=== PATIENT | female | born 1990 | race Caucasian/White ===

== ENCOUNTER 2019-06-12 13:40 | Emergency (ER) | payer BC, OTHER ==
--- OUTSIDE RECORDS SUMMARY | 2019-06-12 13:48 | XMS REPORT | Continuity of Care Document ---
:1990 External Reference #:[id number] Author Name Tameka Brown CNM Address [address] [place] [address] Problems Description No Information Available Social History Type Date Description Comments Sex Unknown Tobacco Use Start: Unknown Never Smoked Cigarettes ETOH Use Currently consumes 1-2 drinks on the alcohol weekend Recreational Drug Use Denies Drug Use Tobacco Use Start: Unknown Patient has never smoked Smoking Status Reviewed: 05/04/19 Patient has never smoked Exercise Type/Frequency Exercises regularly Seat Belt/Car Seat Always uses seat belt Allergies, Adverse Reactions, Alerts Active Allergies Reaction Severity Comments Date Sulfa 05/04/2019 Medications Active Medications SIG Qnty Indications Ordering Provider Date Loestrin 08/14 (21) 1 tab by mouth 84tabs Tameka Brown CNM 05/04/2019 every day at 1-20mg-mcg Tablets the same time Medications Administered in Office Medication SIG Qnty Indications Ordering Provider Date PT SCRN Tbco Id as Non User Tameka Brown CNM 05/04/2019 Injection Immunizations Description No Information Available Vital Signs Date Vital Result Comment 05/04/2019 2:40pm BP Systolic 120 mmHg BP Diastolic 64 mmHg Height 61.5 inches 5'1.50" Weight 125.00 lb BMI (Body Mass Index) 23.2 kg/m2 Last Menstrual Period [id number] Results Test Date Facility Test Result H/L Range Note Laboratory test 05/04/2019 [facility] Cytology <pending> [place] [address] [phone] Procedures Description No Information Available Medical Devices Description No Information Available Encounters Type Date Location Provider Dx Diagnosis Office Visit 05/04/2019 [facility] Tameka Brown CNM Z01.419 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
--- NOTE | 2019-06-12 14:18 | UC ---
Cardiac HPI - History of Current Complaint Chief Complaint: UCChestPain Stated Complaint: LOWER BACK PAIN Time Seen by Provider: 06/12/19 14:10 Hx Obtained From: Patient Hx Last Menstrual Period: 06/04/19 Initial Severity: Severe Current Severity: Severe Pain Intensity: 7 - Allergy/Home Medications Allergies/Adverse Reactions: Allergies Allergy/AdvReac Type Severity Reaction Status Date / Time Sulfa (Sulfonamide Allergy Hives Verified 06/12/19 14:10 Antibiotics) PMH/Surg Hx/FS Hx/Imm Hx Previously Healthy: Yes Other History Of: Negative For: HIV, Hepatitis B, Hepatitis C - Surgical History Surgical History: None - Family History Known Family History: Positive: None, Non-Contributory Negative: Seizure Disorder, Blood Disorder - Social History Occupation: Employed Full-time - [employer] Alcohol Use: None Substance Use Type: None Smoking Status (MU): Never Smoked Tobacco Have You Smoked in the Last Year: No Review of Systems All Other Systems Reviewed And Are Negative: Yes Constitutional: Positive: Chills. Negative: Fever, Fatigue Skin: Negative: Rash, Bruising Respiratory: Negative: Shortness Of Breath, Cough Cardiovascular: Positive: Chest Pain Motor: Positive: Decreased ROM Neurovascular: Negative: Decreased Sensation, Decreased Pulses Musculoskeletal: Positive: Arthralgia, Myalgia. Negative: Decreased ROM, Edema Neurological: Positive: Negative Psychological: Positive: Negative Is Patient Immunocompromised?: No Physical Exam Triage Information Reviewed: Yes Appearance: Well-Appearing, No Pain Distress, Well-Nourished Vital Signs: Initial Vital Signs Temp 98.9 F 06/12/19 14:05 Pulse 100 06/12/19 14:05 Resp 20 06/12/19 14:05 BP 124/74 06/12/19 14:05 Pulse Ox 100 06/12/19 14:05 Vital Signs Reviewed: Yes Eyes: Positive: Conjunctiva Clear ENT: Positive: Hearing grossly normal, TMs normal. Negative: TM bulging, TM dull, TM red Neck: Positive: Supple, Nontender, No Lymphadenopathy. Negative: Nuchal Rigidity, Enlarged Nodes @ Respiratory: Positive: Chest non-tender, Lungs clear, Normal breath sounds, No respiratory distress, No accessory muscle use. Negative: Respiratory distress, Crackles, Rhonchi, Stridor, Wheezing Cardiovascular: Positive: No Murmur, Pulses Normal, Brisk Capillary Refill, Tachycardia - mild at 100 Abdomen Description: Negative: CVA Tenderness (R), CVA Tenderness (L) Musculoskeletal: Positive: Strength Intact, No Edema, Other: - neg homans b/l TTP over b/l thoracic soft tissue extending from paraspinal to axillary line, worse right sided. no TTP over spine. no SI joint tenderness. Neurological: Positive: Alert, Muscle Tone Normal Psychological Exam: Normal Skin Exam: Normal Skin: Negative: Rashes, Breakdown - Assessment/Plan Course Of Treatment: Scoliosis, muscle spasm: - Naproxen/ motrin as directed per bottle for 2-3 days - Increase rest - Establish care with primary physician for further evaluation of chest pain, possible physical therapy for spine - Return with chest pain, shortness of breath, numbness/ tingling. - Dextroscoliosis is a type of scoliosis. Scoliosis is a deformity of the spine that results in a sideways curve of the spinal column. If the spine curves to the right, the condition is known as dextroscoliosis. - Clinical Impression Provider Diagnosis: Muscle spasm, Chest pain Discharge ED - Sign-Out/Discharge Documenting (check all that apply): Patient Departure All imaging exams completed and their final reports reviewed: Yes - Discharge Plan Condition: Good Disposition: HOME Patient Education Materials: Scoliosis in Children (DC), Muscle Spasm (ED) Referrals: Delfina Reyes MD [Primary Care Provider] - Additional Instructions: - Naproxen/ motrin as directed per bottle for 2-3 days - Increase rest - Establish care with primary physician for further evaluation of chest pain, possible physical therapy for spine - Return with chest pain, shortness of breath, numbness/ tingling. - Dextroscoliosis is a type of scoliosis. Scoliosis is a deformity of the spine that results in a sideways curve of the spinal column. If the spine curves to the right, the condition is known as dextroscoliosis. - Billing Disposition and Condition Condition: GOOD Disposition: Home
[2019-06-12 15:04] VITALS: BP 118/75
[2019-06-12 19:17] LABS: ABS Eosinophils 0.2 10^3/ul (0-0.6); ABS Lymphocytes 2.3 10^3/ul (1.0-4.8); ABS Monocytes 0.7 10^3/ul (0-0.8); ABS Neutrophils 6.9 10^3/ul (1.5-7.7); Eosinophil % 1.6 %; Hematocrit 40 % (35-47); Hemoglobin 13.7 g/dL (12.0-16.0); Lymphocyte % 22.7 %; Mean Corpuscular HGB Conc 35 g/dL (31-36); Mean Corpuscular Hemoglobin 31 pg (27-31); Mean Corpuscular Volume 91 fL (80-97); Mean Platelet Volume 9.5 fL (7.4-10.4); Platelet Count 318 10^3/uL (150-450); Red Blood Count 4.35 10^6 /uL (3.70-4.87); Red Cell Distribution Width 12 % (10-15); White Blood Count 10.1 10^3/uL (3.5-10.8)
[2019-06-12 21:04] LABS: Albumin 4.4 g/dL (3.2-5.2); Albumin/Globulin Ratio 1.7 (1-3); BUN/Creatinine Ratio 14.9 (8-20); Calcium 9.4 mg/dL (8.6-10.3); EGFR African American 112.3 (>60); EGFR Non-African American 92.8 (>60); Globulin 2.6 g/dL (2-4); Magnesium 2.3 mg/dL (1.9-2.7); Potassium 4.2 mmol/L (3.5-5.0); Total Bilirubin 0.2 mg/dL (0.2-1.0)
--- NOTE | 2019-06-13 10:36 | UC ---
- Progress Note Progress Note: Reviewed labs ordered yesterday. Normal blood count and chemistries, but B12 is low. Reviewed chart note and uncertain why labs were ordered. She is not anemic and does not have microcytosis. She can begin an oral supplement of B12, available over the counter, of 1000 micrograms = 1 mg per day. She does, however, need a follow up with a primary care physician to review. Lyme is still pending. Course/Dx - Diagnoses Provider Diagnoses: Muscle spasm, Chest pain Discharge ED - Sign-Out/Discharge Documenting (check all that apply): Post-Discharge Follow Up All imaging exams completed and their final reports reviewed: Yes - Discharge Plan Condition: Good Disposition: HOME Patient Education Materials: Scoliosis in Children (DC), Muscle Spasm (ED) Referrals: Delfina Reyes MD [Primary Care Provider] - Additional Instructions: - Naproxen/ motrin as directed per bottle for 2-3 days - Increase rest - Establish care with primary physician for further evaluation of chest pain, possible physical therapy for spine - Return with chest pain, shortness of breath, numbness/ tingling. - Dextroscoliosis is a type of scoliosis. Scoliosis is a deformity of the spine that results in a sideways curve of the spinal column. If the spine curves to the right, the condition is known as dextroscoliosis. - Billing Disposition and Condition Condition: GOOD Disposition: Home
== END 2019-06-12 15:48 | disposition home or self-care (01) ==
LOC: UCEAST 13:40
DX: M62.838 Other muscle spasm (principal); R07.9 Chest pain, unspecified; R68.83 Chills (without fever); M41.9 Scoliosis, unspecified; Z88.2 Allergy status to sulfonamides
CPT/HCPCS: 36415; 72070; 80053; 82607; 83735; 85025; 86618; 99212; G0463